=== PATIENT | male | born 1995 | race Two or more races ===

== ENCOUNTER 2023-02-25 22:42 | Emergency (ER) | payer MEDICAID, OTHER ==
[~2023-02-25] VITALS: Ht 180.3 cm; Wt 76.3 kg
[2023-02-26] MEDS ORDERED: DexAMETHasone 4 MG TAB PO ONE (00:45)
[2023-02-26] MEDS ORDERED: diphenhdrAMINE HCL 25 MG CAP PO ONE (00:45)
[2023-02-26] MEDS ORDERED: LORA-483 PO (00:48)
[2023-02-26] MEDS ORDERED: HYDR25CA PO (00:48)
[2023-02-26] MEDS ORDERED: CLOB0.055 TOP (00:48)
[2023-02-26] MEDS ORDERED: DexAMETHasone SOD PHOS 10MG/1ML VIAL INJ IM ONE (02:15)
[2023-02-26 02:20] VITALS: BP 120/77
== END 2023-02-26 02:21 | disposition home or self-care (01) ==
LOC: ER 22:42
DX: L30.9 Dermatitis, unspecified (principal)
CPT/HCPCS: 96372; 99283; J1100